=== PATIENT | male | born 1930 | race Caucasian/White ===

== ENCOUNTER 2019-02-24 23:44 | Observation (INO) ==
[2019-02-25 00:12] LABS: Basophils # (auto) 0.01 K/uL (0-0.2); Basophils % (auto) 0.1 %; Eosinophils # (auto) 0.31 K/uL (0-0.5); Hematocrit (blood only) 35.1 % (42-52); Hemoglobin 12.3 g/dL (14.0-18.0); Immature Granulocytes # (auto) 0.01 K/uL (0.00-0.02); Immature Granulocytes % (auto) 0.1 %; Lymphocytes # (auto) 2.89 K/uL (1.2-3.4); Lymphocytes % (auto) 37.2 %; Mean Corpuscular Volume 97.2 fL (80-100); Monocytes # (auto) 0.76 K/uL (0.11-0.59); Monocytes % (auto) 9.8 %; Neutrophils # (auto) 3.79 K/uL (1.4-6.5); Neutrophils % (auto) 48.8 %; Platelet Count 193 K/uL (130-400); RDW Coefficient of Variation 13.7 % (11.5-14.5); RDW Standard Deviation 48.8 fL (36.4-46.3); Red Blood Count 3.61 M/uL (4.7-6.1); White Blood Count 7.77 K/uL (4.8-10.8)
[2019-02-25 00:23] LABS: Prothrombin Time 10.1 Seconds (9.0-12.0)
[2019-02-25 00:28] LABS: Alanine Aminotransferase 15 U/L (12-78); Albumin Level 3.3 gm/dl (3.4-5.0); Aspartate Aminotransferase 11 U/L (15-37); BUN Creatinine Ratio 27.1 (10-20); Blood Urea Nitrogen 52 mg/dl (7-18); Calcium 8.3 mg/dl (8.5-10.1); Carbon Dioxide 23 mmol/L (21-32); Chloride 112 mmol/L (98-107); Est GFR (African American) 35.5; Est GFR (Non-African American) 30.6; Glucose 109 mg/dl (70-99); Magnesium 2.5 mg/dl (1.8-2.4); Potassium 4.5 mmol/L (3.5-5.1); Sodium 141 mmol/L (136-145)
[2019-02-25 00:33] LABS: Alkaline Phosphatase 107 U/L (45-117); Bilirubin Direct < 0.1 mg/dl (0-0.2); Bilirubin,Total 0.2 mg/dl (0.2-1); Total Protein 6.9 gm/dl (6.4-8.2); Troponin I < 0.015 ng/ml (0-0.045)
[2019-02-25] MEDS ORDERED: ASPIRIN 81 MG CHEW PO STA (01:05)
--- NOTE | 2019-02-25 04:14 | Emergency Department Note ---
Entered by Allie Henriquez acting as a scribe for ED Provider Note Name: Stewart Oro Age: 88 Arrives Via: EMS Informant: Patient CC: Dizziness HPI: The patient is an 88 year old male who presents to the Emergency Room with complaints of an episode of dizziness starting 10 hours ago. The patient states that last night when he went to bed he felt off. He states that this morning he felt fine. He reports that 10 hours ago he noticed that he was feeling dizzy like he was lightheaded. He states he sat in his chair for a while and just watched TV, but when he got up to walk, he was unsteady on his feet. He notes that this concerned him so he called 911. The patient notes that he has had a cold for a few days and was taking medicine for it, but it has been resolved for several days now. The patient denies the room spinning, feeling weak, vision changes, slurred speech, diarrhea, vomiting, loss of consciousness, loss of appetite, a history of a stroke, and a cardiac history. ROS: See above HPI for pertinent positives & negatives. A total of 10 systems reviewed and were otherwise negative. Past Medical History: Diabetes, History of malignant basal cell neoplasm of skin, Acute respiratory failure, Sepsis, HTN, hypercholesteremia Past Surgical History: None Family History: Non-contributory Social History: The patient is , lives with his spouse, and is retired. He was never a smoker. Home Medications: Ascorbic Acid, Aspirin, Azithromycin, Calcium, Cephalexin, Vitamin D3, Garlic Oil, Glipizide, Metoprolol Succinate, Centrum Silver Adult 50+, Bactrim DS, Dyazide Allergies No known allergies Physical: Vitals: Temperature: 36.8, Temperature Source: Oral, Pulse Rate: 127, Respiratory Rate: 16, Blood Pressure: 121/70, Blood Pressure Mean: 87, O2 Saturation: 97% on Room Air Exam: GENERAL: Patient is tired appearing and in minimal distress. EYES: No scleral icterus, unremarkable pupils. ENT: Mucous membranes moist, no nasal congestion. NECK: No masses appreciated, no meningismus, trachea is midline. RESPIRATORY: No dyspnea. Clear to auscultation and equal bilaterally. No wheeze, no rhonchi. CARDIOVASCULAR: Bradycardic rate and regular rhythm. No murmurs, rubs, gallops appreciated. GASTROINTESTINAL: Abdomen soft, non-tender, no peritonitis. Bowel sounds positive. No masses appreciated. BACK: No midline tenderness, no CVA tenderness EXTREMITIES: Normal motion all extremities, no cyanosis, no edema. NEUROLOGIC: Alert and oriented, no acute sensory deficits, cranial nerves grossly intact. Periodic slurred speech (appears to be due to loose fitting dentures). Weakness and unsteadiness with sitting up. SKIN: No rash, no jaundice, no diaphoresis. ED Course: Prior Medical Record, Triage/Nursing Notes, Medications, Allergies reviewed by Me Vital Signs: reviewed and remarkable for wnl Labs: Reviewed and remarkable for bradycardia Interventions: ASA 324mg PO Imaging: X ray results are stated below per my interpretation: Chest: 1 view: No infiltrate, no effusion, normal cardiac border. [facility] Radiologist interpretation reviewed by me: CT Head without acute findings EKG: Per my interpretation: Stroke like symptoms: Sinus anne. Consults: 0246: I reviewed the patient's case with Dr. Morelos Hospitalist. He will evaluate the patient for further management. Reassessments/Times: 2348: The patient was evaluated in room B2, and a complete history and physical examination were performed. 0107: I reevaluated the patient and he still feels lightheaded and dizzy. He at times appears to have a left facial droop. I discussed his test results and the treatment plan with him and his family. They are agreeable to hospitalist evaluation. The hospitalist will be paged at this time. 0246: I reviewed the patient's case with Dr. Tamy Guzman. He will evaluate the patient for further management. Blood pressure: Elevated - Merrick to be Situation. Disposition: Hospitalization Differentials: Differential Diagnosis includes but is not limited to dehydration, stroke, anemia, hypoglycemia, hyponatremia, hypernatremia, urinary tract infection, pneumonia, bronchitis, sepsis, gastroenteritis, additional abdominal pathology, metabolic abnormalities and infections. Medical Decision Makin yr old male with ataxia dizziness and questionable left facial droop. Ongoing for 12 hours at this point. Minimal symptoms by exam thus not TPA nor intervention candidate. CT head negative. Labs unremarkable. No evidence infection. No evidence ACS. Hospitalist consulted given stroke like symptoms. ASA given for CVA treatment. Patient and family agree with plan for hospitalization. Impression: Stoke-Like Symptoms Ataxia Dizziness Adriano Chery MD The scribe's documentation has been prepared under my direction and personally reviewed by me in its entirety. I confirm that the note above accurately reflects all work, treatment, procedures, and medical decision making performed by me. Impression & Plan Stroke-like symptoms, Ataxia, Dizziness Past Med/Surg History Medical History Diabetes (Chronic) Dysplastic nevus of skin (Resolved Unknown) History of malignant basal cell neoplasm of skin (Resolved Unknown) Pneumonia (Acute) HTN (hypertension) Hypercholesteremia Family History Other Family history non-contributory Social History Preferred Language: Belarusian marital status: Current Living Situation: Spouse current occupational status: retired Feels Safe at Home: Yes Smoking Status: Never smoker Results & Data Vital Signs Vital Signs - 24 hr 02/24/19 23:49 02/24/19 23:50 02/24/19 23:51 Temperature 36.5 C Temperature Source Oral Sepsis Recent Fever Within 48 Hours No Sepsis New/Unexplained Change in Mental Status No Sepsis Action Taken by Nursing No Action Required Pulse Rate 53 L 52 L 53 L Pulse Rate [Right Finger] Pulse Rate from SpO2 Sensor 52 L 53 L Pulse Rhythm Regular Pulse Strength Normal Respiratory Rate 23 23 23 Respiratory Effort / Characteristics Non-Labored Respiratory Depth Normal Respiratory Pattern Regular Blood Pressure 146/67 H 146/67 H Blood Pressure [Left Arm] Blood Pressure Mean 93 93 Blood Pressure Mean [Left Arm] Blood Pressure Position Lying Blood Pressure Position [Left Arm] Pulse Oximetry 98 98 98 Oxygen Delivery Method Room Air 02/25/19 00:00 02/25/19 00:01 02/25/19 00:30 Temperature Temperature Source Sepsis Recent Fever Within 48 Hours Sepsis New/Unexplained Change in Mental Status Sepsis Action Taken by Nursing Pulse Rate 57 L 56 L 56 L Pulse Rate [Right Finger] Pulse Rate from SpO2 Sensor 56 L 56 L 56 L Pulse Rhythm Pulse Strength Respiratory Rate 18 16 19 Respiratory Effort / Characteristics Respiratory Depth Respiratory Pattern Blood Pressure 141/60 H Blood Pressure [Left Arm] Blood Pressure Mean 87 Blood Pressure Mean [Left Arm] Blood Pressure Position Blood Pressure Position [Left Arm] Pulse Oximetry 97 98 97 Oxygen Delivery Method 02/25/19 00:31 02/25/19 00:32 02/25/19 01:00 Temperature Temperature Source Sepsis Recent Fever Within 48 Hours Sepsis New/Unexplained Change in Mental Status Sepsis Action Taken by Nursing Pulse Rate 54 L 51 L Pulse Rate [Right Finger] 54 L Pulse Rate from SpO2 Sensor 54 L 52 L Pulse Rhythm Pulse Strength Respiratory Rate 22 18 15 Respiratory Effort / Characteristics Respiratory Depth Respiratory Pattern Blood Pressure 145/59 H Blood Pressure [Left Arm] 145/59 H Blood Pressure Mean 87 Blood Pressure Mean [Left Arm] 87 Blood Pressure Position Blood Pressure Position [Left Arm] Sitting Pulse Oximetry 97 97 96 Oxygen Delivery Method Room Air 02/25/19 01:01 02/25/19 01:30 02/25/19 02:00 Temperature Temperature Source Sepsis Recent Fever Within 48 Hours Sepsis New/Unexplained Change in Mental Status Sepsis Action Taken by Nursing Pulse Rate 51 L 55 L 51 L Pulse Rate [Right Finger] Pulse Rate from SpO2 Sensor 51 L 55 L 51 L Pulse Rhythm Pulse Strength Respiratory Rate 15 13 15 Respiratory Effort / Characteristics Respiratory Depth Respiratory Pattern Blood Pressure 114/52 L 137/65 Blood Pressure [Left Arm] Blood Pressure Mean 72 89 Blood Pressure Mean [Left Arm] Blood Pressure Position Blood Pressure Position [Left Arm] Pulse Oximetry 96 97 95 Oxygen Delivery Method 02/25/19 02:01 02/25/19 02:30 02/25/19 02:31 Temperature Temperature Source Sepsis Recent Fever Within 48 Hours Sepsis New/Unexplained Change in Mental Status Sepsis Action Taken by Nursing Pulse Rate 50 L 61 59 L Pulse Rate [Right Finger] Pulse Rate from SpO2 Sensor 51 L 61 59 L Pulse Rhythm Pulse Strength Respiratory Rate 16 17 18 Respiratory Effort / Characteristics Respiratory Depth Respiratory Pattern Blood Pressure 110/59 L 133/55 L Blood Pressure [Left Arm] Blood Pressure Mean 76 81 Blood Pressure Mean [Left Arm] Blood Pressure Position Blood Pressure Position [Left Arm] Pulse Oximetry 96 98 96 Oxygen Delivery Method 02/25/19 03:01 02/25/19 03:02 02/25/19 03:30 Temperature Temperature Source Sepsis Recent Fever Within 48 Hours Sepsis New/Unexplained Change in Mental Status Sepsis Action Taken by Nursing Pulse Rate 51 L 56 L 49 L Pulse Rate [Right Finger] Pulse Rate from SpO2 Sensor 51 L 51 L 50 L Pulse Rhythm Pulse Strength Respiratory Rate 15 19 16 Respiratory Effort / Characteristics Respiratory Depth Respiratory Pattern Blood Pressure 115/53 L Blood Pressure [Left Arm] Blood Pressure Mean 73 Blood Pressure Mean [Left Arm] Blood Pressure Position Blood Pressure Position [Left Arm] Pulse Oximetry 96 97 96 Oxygen Delivery Method 02/25/19 03:31 02/25/19 04:00 02/25/19 04:01 Temperature Temperature Source Sepsis Recent Fever Within 48 Hours Sepsis New/Unexplained Change in Mental Status Sepsis Action Taken by Nursing Pulse Rate 49 L 48 L 49 L Pulse Rate [Right Finger] Pulse Rate from SpO2 Sensor 49 L 48 L 49 L Pulse Rhythm Pulse Strength Respiratory Rate 16 13 13 Respiratory Effort / Characteristics Respiratory Depth Respiratory Pattern Blood Pressure 106/51 L 117/53 L Blood Pressure [Left Arm] Blood Pressure Mean 69 74 Blood Pressure Mean [Left Arm] Blood Pressure Position Blood Pressure Position [Left Arm] Pulse Oximetry 96 96 96 Oxygen Delivery Method Home Medications Current Medication List: was personally reviewed by me Laboratory Data Attestation: I reviewed the patient's lab results. Result diagrams: 02/25/19 00:02 02/25/19 00:02 Lab Results 02/25/19 02/25/19 02/25/19 Range/Units 00:02 00:02 00:02 WBC 7.77 (4.8-10.8) K/uL RBC 3.61 L (4.7-6.1) M/uL Hgb 12.3 L (14.0-18.0) g/dL Hct 35.1 L (42-52) % MCV 97.2 (80-100) fL MCH 34.1 H (25-34) pg MCHC 35.0 (32-36) g/dL RDW Std Deviation 48.8 H (36.4-46.3) fL RDW Coeff of Bailey 13.7 (11.5-14.5) % Plt Count 193 (130-400) K/uL MPV 9.0 (7.4-10.4) fL Immature Gran % (Auto) 0.1 % Neut % (Auto) 48.8 % Lymph % (Auto) 37.2 % [place] % (Auto) 9.8 % Eos % (Auto) 4.0 % Baso % (Auto) 0.1 % Immature Gran # (Auto) 0.01 (0.00-0.02) K/uL Neut # (Auto) 3.79 (1.4-6.5) K/uL Lymph # (Auto) 2.89 (1.2-3.4) K/uL [place] # (Auto) 0.76 H (0.11-0.59) K/uL Eos # (Auto) 0.31 (0-0.5) K/uL Baso # (Auto) 0.01 (0-0.2) K/uL PT 10.1 (9.0-12.0) Seconds INR 1.0 (0.9-1.1) Sodium 141 (136-145) mmol/L Potassium 4.5 (3.5-5.1) mmol/L Chloride 112 H (98-107) mmol/L Carbon Dioxide 23 (21-32) mmol/L Anion Gap 6.0 (3-11) BUN 52 H (7-18) mg/dl Creatinine 1.92 H (0.6-1.4) mg/dl Est Cr Clr Drug Dosing Not Reportable Est GFR ( Amer) 35.5 Est GFR (Non-Af Amer) 30.6 BUN/Creatinine Ratio 27.1 H (10-20) Glucose 109 H (70-99) mg/dl Calcium 8.3 L (8.5-10.1) mg/dl Magnesium 2.5 H (1.8-2.4) mg/dl Total Bilirubin 0.2 (0.2-1) mg/dl Direct Bilirubin < 0.1 (0-0.2) mg/dl AST 11 L (15-37) U/L ALT 15 (12-78) U/L Alkaline Phosphatase 107 (45-117) U/L Troponin I < 0.015 (0-0.045) ng/ml Total Protein 6.9 (6.4-8.2) gm/dl Albumin 3.3 L (3.4-5.0) gm/dl Administered Medications Discontinued Medications Aspirin (Aspirin Chew) 324 mg PO NOW STA Stop: 02/25/19 01:06 Last Admin: 02/25/19 01:13 Dose: 324 mg Documented by: [id number] Blood Pressure Blood Pressure Findings: Elevated blood pressure Blood Pressure Disposition: elevated BP felt to be situational Discharge Plan Visit Data Chief Complaint: Dizziness ED Provider: Adriano Chery Discharge Problem: Stroke-like symptoms, Ataxia, Dizziness Patient Disposition: Being Evaluated by Hospitalist Discharge Instructions Interventions: ED Discharge Assessment Last Done: 02/25/19 04:06 The scribe's documentation has been prepared under my direction and personally reviewed by me in its entirety. I confirm that the note above accurately reflec ts all work, treatment, procedures, and medical decision making performed by me.
--- NOTE | 2019-02-25 04:38 | History and Physical Report ---
DATE OF ADMISSION: 02/25/2019 CHIEF COMPLAINT: Dizziness and imbalance. HISTORY OF PRESENT ILLNESS: This is an 88-year-old male with past medical history significant for type 2 diabetes, hyperlipidemia, obstructive sleep apnea on CPAP, hypertension, chronic kidney disease stage III, BPH, history of rhabdomyolysis, who presents with dizziness and imbalance. The patient lives with his . He ambulates without any help. Today in the afternoon he was sitting on the porch, suddenly felt dizzy, lightheaded. It lasted for some time and after that he was able to get up and go into the house and later he was watching TV with his and when he tried to get up, he was feeling imbalance and his got worried and EMS was called in. When the EMS came, he walked okay to the ambulance and brought into the hospital. Currently resting comfortably and hemodynamically stable. Initial imaging studies are okay. Denies any headache, very hard of hearing. He denies any earaches, no runny nose, no sore throat, no cough. Sleeps okay. Appetite is okay. No recent weight gain or weight loss. No fever, chills. No chest pain, no shortness of breath, no cough, no nausea, no abdominal pain. Normal bowel and bladder movements. No hematuria or burning micturition. No melena or hematochezia. No swelling in the legs. No rash. ALLERGIES: No known drug allergies. PAST MEDICAL HISTORY: As mentioned above. PAST SURGICAL HISTORY: Colonoscopy, appendectomy, left hip replacement, right cataract surgery, vasectomy. MEDICATIONS: The patient is on glipizide 5 mg p.o. daily, lisinopril 5 mg p.o. daily, Maxzide 37.5/25 mg daily, Toprol-XL 50 mg p.o. daily, Ativan 0.5 mg p.o. b.i.d. p.r.n., hydroxyzine 10 mg 1-2 tablets p.o. at bedtime for itching, Zofran 4 mg p.o. q. 8 hours p.r.n., vitamin D 1000 units p.o. daily, garlic 1000 mg p.o. daily, aspirin 81 mg p.o. daily, calcium 600 mg p.o. daily, Centrum Silver 1 tablet daily, vitamin C 500 mg p.o. daily. FAMILY HISTORY: Significant for father had hypertension and stroke, mother had hypertension, brother has hypertension, son has diabetes. SOCIAL HISTORY: Currently lives with . No smoking, no alcohol, no drug use. REVIEW OF SYSTEMS: As per HPI. Rest of the review of systems negative. PHYSICAL EXAMINATION: GENERAL: The patient is somewhat old and frail, not in acute distress. VITAL SIGNS: Temperature 36.5, pulse 51, respiratory rate 15, blood pressure 115/53, oxygen 96% on room air. HEENT: No pallor, no icterus. Pupils equal, round, and reactive to light. NECK: No JVD. No neck masses, no carotid bruits. CARDIOVASCULAR: S1, S2 heard, regular rate and rhythm, no murmur, no gallop. RESPIRATORY SYSTEM: Normal AP diameter. No accessory muscle use. No wheezing, no crackles. ABDOMEN: Soft, bowel sounds present. Nontender. No distention. CENTRAL NERVOUS SYSTEM: Cranial nerves II-XII grossly intact. Power 5/5 in all extremities. No pronator drift. [id number]-az-[id number] test normal. Coordination of movements normal. Heel to fortune test normal. Sensation is intact. Position sense intact. EXTREMITIES: No edema, no erythema. LABORATORY DATA: WBC 7.7, hemoglobin 12.3, hematocrit 35.1, platelets 193. PT 10.1, INR 1. Sodium 141, potassium 4.5, chloride 112, bicarbonate 23, BUN 52, creatinine 1.9, serum glucose 109, calcium 8.3, magnesium 2.5, total bilirubin 0.2, direct bilirubin less than 0.1, AST 11, ALT 15, alkaline phosphatase 107. Troponin I less than 0.015. IMAGING DATA: Chest x-ray, no acute findings seen. EKG: Sinus bradycardia at rate of 51. No acute ST changes seen. No significant change from previous EKG. ASSESSMENT AND PLAN: This is an 88-year-old male who presents with dizziness and imbalance. 1. Dizziness and imbalance. CT head unofficial report unremarkable. Currently, the patient is doing okay. Hemodynamically stable. We will observe in tele floor. We will get a stroke workup with MRI of the head, carotid Doppler, echocardiogram, PT and OT, neurology evaluation. Patient is already on aspirin and if MRI shows stroke, we will add Plavix and high-dose statin. Follow fasting lipid profile and HbA1c level as per stroke protocol. 2. History of diabetes. Hold the glipizide. Placed him on insulin sliding scale currently and we will place him on soft diet until speech evaluation. Follow his blood sugars. Follow his hemoglobin A1c levels. 3. Hypertension. On lisinopril, Maxzide, and Toprol-XL, which he will continue. May be blood pressure medication needs to be adjusted as his blood pressure is somewhat on the lower side for his age, could be causing these symptoms. 4. Sinus bradycardia. May be his meds need to be adjusted. We will monitor on tele floor. 5. Chronic kidney disease stage III, baseline creatinine around 1.7-1.8, point of care creatinine of 1.9. Gentle fluids. We will follow the labs in the a.m. If worsening, we will hold the lisinopril and Maxzide. 6. Anxiety. Ativan p.r.n. 7. Obstructive sleep apnea, on CPAP at bedtime. 8. Hyperlipidemia . Not on medications, will follow the fasting lipid profile. 9. Deep vein thrombosis prophylaxis, sequential compression devices for now. DISPOSITION: Observation in tele floor. PT and OT prior to discharge. Social service to help with discharge planning. Level 1 full code. MTDD
[2019-02-25] MEDS ORDERED: ACETAMINOPHEN 325 MG TAB PO PRN (04:51)
[2019-02-25] MEDS ORDERED: NITROGLYCERIN SL 0.4 MG/TAB TAB SL PRN (04:51)
[2019-02-25] MEDS ORDERED: SODIUM CHLORIDE 0.9% 1000ML 1,000 ML IV SCH (04:51)
[2019-02-25] MEDS ORDERED: ONDANSETRON 4 MG TAB PO PRN (04:51)
[2019-02-25] MEDS ORDERED: ONDANSETRON INJ 2 MG/ML 2 ML VIAL IV PRN (04:51)
[2019-02-25] MEDS ORDERED: LORazepam 0.5 MG TAB PO PRN (04:51)
[2019-02-25] MEDS ORDERED: PHARMACIST DISCHARGE MED REC CONSULT PRN (04:51)
[2019-02-25] MEDS ORDERED: GLUCOSE 10 TABS/TUBE PO PRN (05:15)
[2019-02-25] MEDS ORDERED: CARBOHYDRATES FOR HYPOGLYCEMIA PO PRN (05:15)
[2019-02-25] MEDS ORDERED: DEXTROSE 50% 50 ML SYRINGE IV PRN (05:15)
[2019-02-25] MEDS ORDERED: GLUCAGON FOR INJ 1 MG VIAL SQ PRN (05:15)
[2019-02-25] MEDS ORDERED: GLUCOSE 40% GEL 15 GM TUBE PO PRN (05:15)
--- NOTE | 2019-02-25 06:36 | XRay Report ---
XR chest 1V portable HISTORY: 88 years-old Male generalized weakness acute weakness COMPARISON: Chest radiograph 05/03/2018 TECHNIQUE: Portable AP view of the chest FINDINGS: Calcified granuloma of the left lung base is unchanged. Cardiomediastinal and hilar silhouettes are s table. There is no pneumothorax, pleural effusion, focal airspace consolidation or overt pulmonary ed marva. Healed remote left-sided rib fractures. Degenerative changes of the shoulders and spine. IMPRESSION: No acute process. The above report was generated using voice recognition software. It may contain grammatical, syntax o r spelling errors. Electronically signed by: Israel Hartmann M.D. 02/25/2019 6:35 AM
--- NOTE | 2019-02-25 06:44 | CT Scan Report ---
CT head/brain wo con CT DOSE: 614.27 mGy.cm HISTORY: Mental status change ataxia, weakness TECHNIQUE: Multiaxial CT images of the head were performed without the use of intravenous contrast. A dose lowering technique was utilized adhering to the principles of ALARA. Comparison: None. Findings: The paranasal sinuses and mastoid air cells are clear. The calvarium and skull base are int act. The ventricles and sulci are within normal limits. There is no mass, hematoma, midline shift, or acute infarct. Impression: No acute intracranial abnormality. The above report was generated using voice recognition software. It may contain grammatical, syntax or spelling errors. Electronically signed by: Johnnie Awan M.D. 02/25/2019 6:43 AM
[2019-02-25] MEDS ORDERED: GADOBUTROL 65ML VIAL IV PRN (07:03)
--- NOTE | 2019-02-25 07:27 | Magnetic Resonance Report ---
MR brain wo/w con HISTORY: 88 years-old Male stroke like symptoms acute strokelike symptoms with lightheadedness COMPARISON: CT head 02/25/2019. TECHNIQUE: Multiplanar multisequence MRI the brain was obtained both with and without the use of 8 mL Gadavist FINDINGS: Ob Gyn Physician Assistant localizer images demonstrate no gross abnormality. There is no restricted diffusion to suggest acute or subacute infarction. Midline structures including the corpus callosum, brainstem, optic miguel ángel sm, pituitary and pineal glands appear unremarkable on the sagittal T1 series. No cerebellar tonsilla r herniation. Degenerative changes noted about the imaged cervical spine. No acute intracranial hemorrhage, midline shift, abnormal extra-axial collections, hydrocephalus or i ntracranial mass. Age-related involutional changes with ex vacuo ventriculomegaly. Moderate T2/FLAIR hyperintensities about the white matter suggest probable chronic microvascular ischemic changes. Ther e is no abnormal intra-axial or extra-axial enhancement identified. The major flow voids at the level of the skull base appear to be patent. Mastoid air cells appear marley ar. Mild mucosal thickening of the paranasal sinuses. Mild rightward bowing and spurring of the nasal septum. Prior bilateral cataract repair. The skull and soft tissues are unremarkable. IMPRESSION: 1. No acute intracranial abnormality identified, specifically no acute or subacute infarction. 2. Age-related involutional changes with suggestion of moderate chronic microvascular ischemic diseas e. 3. Mild paranasal sinus disease. 4. No abnormal enhancement. The above report was generated using voice recognition software. It may contain grammatical, syntax o r spelling errors. Electronically signed by: Israel Hartmann M.D. 02/25/2019 7:25 AM
[2019-02-25] MEDS: INSULIN ASPART 100 UNITS/ML 3 ML PEN SC SCH ×2 (08:08→13:22)
[2019-02-25] MEDS ORDERED: TOCOPHERYL, DL-ALPHA 400 UNITS CAP PO SCH (09:00)
[2019-02-25] MEDS ORDERED: CALCIUM 600MG + VIT D 400 IU TAB PO SCH (09:00)
[2019-02-25] MEDS ORDERED: ASPIRIN 81 MG ECTAB PO SCH (09:00)
[2019-02-25] MEDS ORDERED: CHOLECALCIFEROL 1,000 UNITS TAB PO SCH (09:00)
[2019-02-25] MEDS ORDERED: METOPROLOL SUCC 50MG EXT REL TAB PO SCH (09:00)
[2019-02-25] MEDS ORDERED: TRIAMTERENE/HCTZ 37.5/25MG CAP PO SCH (09:00)
[2019-02-25] MEDS ORDERED: ASCORBIC ACID 500 MG TAB PO SCH (09:00)
[2019-02-25] MEDS ORDERED: LISINOPRIL 5 MG TAB PO SCH (09:00)
[2019-02-25] MEDS ORDERED: CEROVITE ADV FORMULA TAB PO SCH (09:00)
[2019-02-25 09:21] LABS: BUN Creatinine Ratio 29.1 (10-20); Calcium 8.6 mg/dl (8.5-10.1); Creatinine Clr Calc Pharmacy 29.6 ml/min; Est GFR (African American) 39.4; Potassium 4.7 mmol/L (3.5-5.1)
[2019-02-25 09:22] LABS: Estimated Average Glucose 134 mg/dl; Hemoglobin A1C 6.3 % (4.5-5.6)
[2019-02-25 09:23] LABS: Chol HDL Ratio 4; Cholesterol 123 mg/dl (0-200); HDL Cholesterol 30 mg/dl; LDL Cholesterol Calculated 49 mg/dl; Triglycerides 218 mg/dl (0-150); VLDL Cholesterol 44 mg/dl
--- NOTE | 2019-02-25 10:56 | Ultrasound Report ---
ULTRASOUND OF THE CAROTID ARTERIES CLINICAL HISTORY: Possible stroke COMPARISON STUDY: October 2011 TECHNIQUE: Real-time, grayscale, and color Doppler sonography of the carotid arteries was performed. Imaging reviewed in the transverse and longitudinal planes. NASCET criteria was utilized for stenosis calcification. FINDINGS: There is moderate atherosclerotic plaque present bilateral. The peak systolic velocity within the right internal carotid artery is 100 cm/sec. The systolic velocity ratio of right internal to common carotid artery is 1.5. The peak systolic velocity within the left internal carotid artery is 267 cm/sec. The systolic velocity ratio left internal to common carotid artery is 4.7. Antegrade flow is seen in the vertebral arteries. The external carotid arteries are patent. IMPRESSION: 1. 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 2. No evidence of hemodynamically significant left internal carotid artery stenosis. Electronically signed by: Mehdi Cardenas M.D. 02/25/2019 10:55 AM
--- NOTE | 2019-02-25 14:55 | Neurology Consultation ---
Date of Consultation February 25, 2019 Assessment & Plan (1) Dizziness: 1. MRI - no acute findings 2. carotid doppler- 70+ stenosis LICA 3. TTE- 55-60% no ASD 4. PT/OT for discharge needs 5. primary team for medication adjustments pulse and blood pressure issues like 6. call with questions concerns will sign off for now Supervising Physician Co-Signing Physician Notes I have seen and discussed above patient with Dr Ramon Rai. I agree with Amanda Berrios PA-C as noted below. Patient was seen and examined. Symptoms improved. He denies dizziness or balance problems today. No history of similar episodes. Denies vertigo. On examine he is grossly hard of hearing. EOMI. Face symmetric. Speech is clear. Wide based gait. Amble to stand with eyes closed. MRI Brain reviewed. No evidence of acute stroke. 70% left ICA stenosis noted on carotid doppler. I believe this is an incidental finding and not related to the episode he had yesterday. Continue home ASA 81 mg daily. Would recommend he start a high intensity statin. Recommend vascular surgery follow up as outpatient. Recommend PT/OT. Please call with any further question or concerns. History of Present Illness Reason for Consultation: dizziness,imbalance Requesting Physician: Gold Bell MD Attending Physician: Gold Bell MD History of Present Illness Stewart is an 88 year old male who has a PMH DM2, HLD, LEN on CPAP, HTN, CKD III, BPH, previous hx rhabdomyolysis, who presents with dizziness and imbalance. He lives with his and ambulates without assistance. He was sitting on the porch, suddenly felt dizzy, lightheaded. He was then watching TV with his and when he tried to get up, he was feeling imbalance and his got worried and EMS was called in. he was brought to the ED for further evaluation. He denies CP, SOB, abdominal pain, one sided weakness, numbness tingling, N, V, headache, falls. Allergies Allergy/AdvReac Type Severity Reaction Status Date / Time No Known Allergies Allergy Verified 02/25/19 01:07 Home Medications Home Medications Medication Instructions Recorded Confirmed Type ascorbic acid (vitamin C) [Vitamin 500 mg PO DAILY 02/25/19 02/25/19 History C] aspirin 81 mg PO DAILY 02/25/19 02/25/19 History calcium carbonate [Calcium 600] 600 mg PO Q OTHER DAY 02/25/19 02/25/19 History cholecalciferol (vitamin D3) 1,000 unit PO DAILY 02/25/19 02/25/19 History [Vitamin D3] garlic 1,000 mg PO DAILY 02/25/19 02/25/19 History glipizide 30 mg PO QAM 02/25/19 02/25/19 History hydroxyzine HCl 10 - 20 mg PO HS 02/25/19 02/25/19 History lisinopril 5 mg PO DAILY 02/25/19 02/25/19 History lorazepam 0.5 mg PO BID PRN 02/25/19 02/25/19 History metoprolol succinate 50 mg PO DAILY 02/25/19 02/25/19 History rfogslge-nrq-QW-lycopen-lutein 1 tab PO Q OTHER DAY 02/25/19 02/25/19 History [Centrum Silver Men] ondansetron HCl 4 mg PO Q8 PRN 02/25/19 02/25/19 History triamterene-hydrochlorothiazid 1 cap PO DAILY 02/25/19 02/25/19 History vitamin E 400 unit PO DAILY 02/25/19 02/25/19 History Patient History Medical History Diabetes (Chronic) Dysplastic nevus of skin (Resolved Unknown) History of malignant basal cell neoplasm of skin (Resolved Unknown) Pneumonia (Acute) HTN (hypertension) Hypercholesteremia Family History Other Family history non-contributory Social History Preferred Language: [place] Communication Ability: Effective Tube Coremaker Required: No Beliefs That Will Affect Care: None marital status: Current Living Situation: Spouse current occupational status: retired Feels Safe at Home: Yes Safety Concerns: Feels Safe At This Time Smoking Status: Never smoker Hx Alcohol Use: No Hx Substance Use: No Physical Exam Vital Signs (Past 24 Hours): Last Vital Signs Temp 36.5 C 02/25/19 11:20 Pulse 52 L 02/25/19 11:20 Resp 16 02/25/19 11:20 BP 134/59 L 02/25/19 11:20 Pulse Ox 99 02/25/19 11:20 Physical Exam: Constitutional: appearance nourished, healthy and normal, very [place] Ears, Nose, Mouth and Throat: mucous membranes moist, no injection and skin normal, eyes normal Cardiovascular: normal S-1 and S-2 and regular rate and rhythm Respiratory: course breath sounds Musculoskeletal: no peripheral edema and good distal pulses Skin: no stigmata of neurocutaneous disease noted and normal and intact Eyes: extraocular muscles intact (EOMI) and pupils equal, round and reactive to light (PERRL) NEUROLOGIC EXAMINATION: Mental status: Alert and interactive Oriented to full date and location Oriented to person Speech fluent with no evidence of aphasia Cranial Nerves smile eye brow raise symmetric Reflexes: Deep tendon reflexes were symmetrical and graded 2/5. Sensory: no sensory deficits to light touch Coordination: finger to nose no bi pass bilaterally, Romberg negative Gait/Stance: Posture normal. Gait normal: with steady with steps, base, turning (slightly off balance) and tandem gait. Motor: Negative for pronator drift of out stretched arms with eyes closed. Strength: biceps triceps hand loan officer assistant, deltoids bilaterally 5/5 hip flex plantar flex ext 5/5 bilaterally Results & Data Laboratory Results Abnormal lab results 02/25/19 02/25/19 02/25/19 Range/Units 00:02 00:02 07:16 RBC 3.61 L (4.7-6.1) M/uL Hgb 12.3 L (14.0-18.0) g/dL Hct 35.1 L (42-52) % MCH 34.1 H (25-34) pg RDW Std Deviation 48.8 H (36.4-46.3) fL [place] # (Auto) 0.76 H (0.11-0.59) K/uL Chloride 112 H (98-107) mmol/L BUN 52 H (7-18) mg/dl Creatinine 1.92 H (0.6-1.4) mg/dl BUN/Creatinine Ratio 27.1 H (10-20) Glucose 109 H (70-99) mg/dl POC Glucose 106 H (70-99) Hemoglobin A1c (4.5-5.6) % Calcium 8.3 L (8.5-10.1) mg/dl Magnesium 2.5 H (1.8-2.4) mg/dl AST 11 L (15-37) U/L Albumin 3.3 L (3.4-5.0) gm/dl Triglycerides (0-150) mg/dl 02/25/19 02/25/19 02/25/19 Range/Units 08:53 08:53 08:53 RBC (4.7-6.1) M/uL Hgb (14.0-18.0) g/dL Hct (42-52) % MCH (25-34) pg RDW Std Deviation (36.4-46.3) fL [place] # (Auto) (0.11-0.59) K/uL Chloride 111 H (98-107) mmol/L BUN 51 H (7-18) mg/dl Creatinine 1.76 H (0.6-1.4) mg/dl BUN/Creatinine Ratio 29.1 H (10-20) Glucose 163 H (70-99) mg/dl POC Glucose (70-99) Hemoglobin A1c 6.3 H (4.5-5.6) % Calcium (8.5-10.1) mg/dl Magnesium (1.8-2.4) mg/dl AST (15-37) U/L Albumin (3.4-5.0) gm/dl Triglycerides 218 H (0-150) mg/dl 02/25/19 Range/Units 11:39 RBC (4.7-6.1) M/uL Hgb (14.0-18.0) g/dL Hct (42-52) % MCH (25-34) pg RDW Std Deviation (36.4-46.3) fL [place] # (Auto) (0.11-0.59) K/uL Chloride (98-107) mmol/L BUN (7-18) mg/dl Creatinine (0.6-1.4) mg/dl BUN/Creatinine Ratio (10-20) Glucose (70-99) mg/dl POC Glucose 120 H (70-99) Hemoglobin A1c (4.5-5.6) % Calcium (8.5-10.1) mg/dl Magnesium (1.8-2.4) mg/dl AST (15-37) U/L Albumin (3.4-5.0) gm/dl Triglycerides (0-150) mg/dl Diagnostic Findings CXR-calcified granuloma of the left lung base is unchanged. Cardiomediastinal and hilar silhouettes are stable. There is no pneumothorax, pleural effusion, focal airspace consolidation or overt pulmonary edema. Healed remote left-sided rib fractures. Degenerative changes of the shoulders and spine. CT head-No acute intracranial abnormality. MRI brain- No acute intracranial abnormality identified, specifically no acute or subacute infarction. Age-related involutional changes with suggestion of moderate chronic microvascular ischemic disease. Mild paranasal sinus disease. No abnormal enhancement. carotid doppler- 70+ percent stenosis of the left internal carotid artery. No evidence of hemodynamically significant left internal carotid artery stenosis.
[2019-02-25] MEDS ORDERED: STROKE PATIENT DISCHARGE STA (16:15)
--- NOTE | 2019-02-25 16:17 | Hospitalist Progress Note ---
Date of Service February 25, 2019 Assessment & Plan (1) Dizziness: HISTORY OF PRESENT ILLNESS: as per admitting doctor "This is an 88-year-old male with past medical history significant for type 2 diabetes, hyperlipidemia, obstructive sleep apnea on CPAP, hypertension, chronic kidney disease stage III, BPH, history of rhabdomyolysis, who presents with dizziness and imbalance. The patient lives with his . He ambulates without any help. Today in the afternoon he was sitting on the porch, suddenly felt dizzy, lightheaded. It lasted for some time and after that he was able to get up and go into the house and later he was watching TV with his and when he tried to get up, he was feeling imbalance and his got worried and EMS was called in. When the EMS came, he walked okay to the ambulance and brought into the hospital. Currently resting comfortably and hemodynamically stable. Initial imaging studies are okay. Denies any headache, very hard of hearing. He denies any earaches, no runny nose, no sore throat, no cough. Sleeps okay. Appetite is okay. No recent weight gain or weight loss. No fever, chills. No chest pain, no shortness of breath, no cough, no nausea, no abdominal pain. Normal bowel and bladder movements. No hematuria or burning micturition. No melena or hematochezia. No swelling in the legs. No rash." Dizziness and imbalance. -resolved -appears transient in nature -received IV fluids during hospital stay -advised patient to reduce home dose Metoprolol from 50 mg daily to 25 mg daily to improve the bradycardia -echocardiogram TTE- 55-60% no ASD -CT head No acute intracranial abnormality -MRI brain: No acute intracranial abnormality identified, specifically no acute or subacute infarction; Age-related involutional changes with suggestion of moderate chronic microvascular ischemic disease. -passed PT/OT evaluations -neurology: no evidence of stroke, incidental left carotid stenosis sinus bradycardia -heart rate generally in the low 50s -Patient should take new prescription of metoprolol succinate as 25 mg daily rather than 50 mg daily to avoid slow heart rate (bradycardia) left internal carotid stenosis -Patient had good non fasting lipid panel but because of the left internal carotid stenosis as seen on ultrasound carotid dopplers, neurology recommends patient to take high intensity statin and atorvastatin 40 mg have been prescribed. Patient should discuss with primary care doctor on further management of plaque control and be referred to a vascular surgery service clinic by primary medical doctor. 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 Metoprolol adjustment from home medication dosing is to be reduced History of Anxiety -no longer takes Ativan Obstructive sleep apnea, on CPAP at bedtime. Discharge Diagnosis: Dizziness and Imbalance (resolved), sinus bradycardia, left internal carotid stenosis, type 2 diabetes mellitus without mcc current use of insulin, acute kidney injury on Chronic kidney disease (acute kidney injury resolved) Discharge Instructions: "Discharge to home Patient has close follow up with primary care doctor 02/27/2019 11:00 AM Provider Johnnie Pantoja MD Department [facility] Patient should take new prescription of metoprolol succinate as 25 mg daily rather than 50 mg daily to avoid slow heart rate (bradycardia) Patient may continue glipizide 5 mg daily extended release and continue to follow with family medical doctor about diabetes type 2 mellitus management HbA1c 6.3 so the diabetes mellitus is controlled Patient had good non fasting lipid panel but because of the left internal carotid stenosis as seen on ultrasound carotid dopplers, neurology recommends patient to take high intensity statin and atorvastatin 40 mg have been prescribed. Patient should discuss with primary care doctor on further man agement of plaque control and be referred to a vascular surgery service clinic by primary medical doctor. Patient should drink water to stay hydrated" Subjective Patient seen and examined at bedside. no dizziness today. ambulated well. telemetry with heart rate in 50s. denies shortness of breath. hard of hearing and this is baseline as per patient's . performed medical reconcilliation at bedside as the patient's brought in all home medication pill bottles. Discharge plans discussed with patient and his at length Physical Exam Vital Signs (Past 24 Hours): Last Vital Signs Temp 36.5 C 02/25/19 15:00 Pulse 54 L 02/25/19 15:52 Resp 16 02/25/19 15:00 BP 152/66 H 02/25/19 15:00 Pulse Ox 99 02/25/19 15:00 Constitutional: WD/WN, vitals as above Eyes: PERRL, conjunctivae normal, anicteric sclerae EOM intact bilaterally ENMT: external ear and nose normal, oropharynx normal Ears: + hearing impairment Neck: trachea midline, no thyromegaly normal visual inspection Respiratory: normal respiratory effort, lungs clear to auscultation Cardiovascular: RRR, no murmur, no edema Gastrointestinal (Abdomen): normal bowel sounds, soft, nontender, no hepatosplenomegaly Musculoskeletal: no cyanosis or clubbing, extremities motor strength 5/5 Head/Neck/Chest: normocephalic and head atraumatic Neurologic: PERRL, EOMI, accommodation nl, no face palsy, no dysarthria CN's II-XI intact bilaterally Psychiatric: A+Ox3, euthymic affect
--- NOTE | 2019-02-25 16:34 | Discharge Summary ---
Date of Service February 25, 2019 Admission HPI Per Admitting Provider HISTORY OF PRESENT ILLNESS: This is an 88-year-old male with past medical history significant for type 2 diabetes, hyperlipidemia, obstructive sleep apnea on CPAP, hypertension, chronic kidney disease stage III, BPH, history of rhabdomyolysis, who presents with dizziness and imbalance. The patient lives with his . He ambulates without any help. Today in the afternoon he was sitting on the porch, suddenly felt dizzy, lightheaded. It lasted for some time and after that he was able to get up and go into the house and later he was watching TV with his and when he tried to get up, he was feeling imbalance and his got worried and EMS was called in. When the EMS came, he walked okay to the ambulance and brought into the hospital. Currently resting comfortably and hemodynamically stable. Initial imaging studies are okay. Denies any headache, very hard of hearing. He denies any earaches, no runny nose, no sore throat, no cough. Sleeps okay. Appetite is okay. No recent weight gain or weight loss. No fever, chills. No chest pain, no shortness of breath, no cough, no nausea, no abdominal pain. Normal bowel and bladder movements. No hematuria or burning micturition. No melena or hematochezia. No swelling in the legs. No rash. ALLERGIES: No known drug allergies. PAST MEDICAL HISTORY: As mentioned above. PAST SURGICAL HISTORY: Colonoscopy, appendectomy, left hip replacement, right cataract surgery, vasectomy. MEDICATIONS: The patient is on glipizide 5 mg p.o. daily, lisinopril 5 mg p.o. daily, Maxzide 37.5/25 mg daily, Toprol-XL 50 mg p.o. daily, Ativan 0.5 mg p.o. b.i.d. p.r.n., hydroxyzine 10 mg 1-2 tablets p.o. at bedtime for itching, Zofran 4 mg p.o. q. 8 hours p.r.n., vitamin D 1000 units p.o. daily, garlic 1000 mg p.o. daily, aspirin 81 mg p.o. daily, calcium 600 mg p.o. daily, Centrum Silver 1 tablet daily, vitamin C 500 mg p.o. daily. FAMILY HISTORY: Significant for father had hypertension and stroke, mother had hypertension, brother has hypertension, son has diabetes. SOCIAL HISTORY: Currently lives with . No smoking, no alcohol, no drug use. REVIEW OF SYSTEMS: As per HPI. Rest of the review of systems negative. Admission Exam Per Admitting Provider PHYSICAL EXAMINATION: GENERAL: The patient is somewhat old and frail, not in acute distress. VITAL SIGNS: Temperature 36.5, pulse 51, respiratory rate 15, blood pressure 115/53, oxygen 96% on room air. HEENT: No pallor, no icterus. Pupils equal, round, and reactive to light. NECK: No JVD. No neck masses, no carotid bruits. CARDIOVASCULAR: S1, S2 heard, regular rate and rhythm, no murmur, no gallop. RESPIRATORY SYSTEM: Normal AP diameter. No accessory muscle use. No wheezing, no crackles. ABDOMEN: Soft, bowel sounds present. Nontender. No distention. CENTRAL NERVOUS SYSTEM: Cranial nerves II-XII grossly intact. Power 5/5 in all extremities. No pronator drift. Ifqnrq-vs-vaxd test normal. Coordination of movements normal. Heel to fortune test normal. Sensation is intact. Position sense intact. EXTREMITIES: No edema, no erythema. Principal Diagnosis Dizziness and Imbalance (resolved), sinus bradycardia, left internal carotid stenosis, type 2 diabetes mellitus without snf current use of insulin, acute kidney injury on Chronic kidney disease (acute kidney injury resolved) Discharge Exam Constitutional WD/WN, vitals as above Eyes PERRL, conjunctivae normal, anicteric sclerae EOM intact bilaterally ENMT external ear and nose normal, oropharynx normal Ears: + hearing impairment Neck trachea midline, no thyromegaly normal visual inspection Respiratory normal respiratory effort, lungs clear to auscultation Cardiovascular RRR, no murmur, no edema Gastrointestinal (Abdomen) normal bowel sounds, soft, nontender, no hepatosplenomegaly Musculoskeletal no cyanosis or clubbing, extremities motor strength 5/5 Head/Neck/Chest: normocephalic and head atraumatic Neurologic PERRL, EOMI, accommodation nl, no face palsy, no dysarthria CN's II-XI intact bilaterally Psychiatric A+Ox3, euthymic affect Discharge Data Allergies Allergy/AdvReac Type Severity Reaction Status Date / Time No Known Allergies Allergy Verified 02/25/19 01:07 Consultations 02/25/19 01:05 ED Decision to Admit Stat 02/25/19 04:51 Consult Case Management - Discharge Planning Routine 02/25/19 08:00 Consult Neurology Routine Ordered Studies 02/24/19 23:53 CT head/brain wo con Urgent 02/25/19 04:51 MR brain wo/w con Urgent US carotid doppler BI Routine Hospital Course (1) Dizziness: HISTORY OF PRESENT ILLNESS: as per admitting doctor "This is an 88-year-old male with past medical history significant for type 2 diabetes, hyperlipidemia, obstructive sleep apnea on CPAP, hypertension, chronic kidney disease stage III, BPH, history of rhabdomyolysis, who presents with dizziness and imbalance. The patient lives with his . He ambulates without any help. Today in the afternoon he was sitting on the porch, suddenly felt dizzy, lightheaded. It lasted for some time and after that he was able to get up and go into the house and later he was watching TV with his and when he tried to get up, he was feeling imbalance and his got worried and EMS was called in. When the EMS came, he walked okay to the ambulance and brought into the hospital. Currently resting comfortably and hemodynamically stable. Initial imaging studies are okay. Denies any headache, very hard of hearing. He denies any earaches, no runny nose, no sore throat, no cough. Sleeps okay. Appetite is okay. No recent weight gain or weight loss. No fever, chills. No chest pain, no shortness of breath, no cough, no nausea, no abdominal pain. Normal bowel and bladder movements. No hematuria or burning micturition. No melena or hematochezia. No swelling in the legs. No rash." Dizziness and imbalance. -resolved -appears transient in nature -received IV fluids during hospital stay -advised patient to reduce home dose Metoprolol from 50 mg daily to 25 mg daily to improve the bradycardia -echocardiogram TTE- 55-60% no ASD -CT head No acute intracranial abnormality -MRI brain: No acute intracranial abnormality identified, specifically no acute or subacute infarction; Age-related involutional changes with suggestion of moderate chronic microvascular ischemic disease. -passed PT/OT evaluations -neurology: no evidence of stroke, incidental left carotid stenosis sinus bradycardia -heart rate generally in the low 50s -Patient should take new prescription of metoprolol succinate as 25 mg daily rather than 50 mg daily to avoid slow heart rate (bradycardia) left internal carotid stenosis -Patient had good non fasting lipid panel but because of the left internal carotid stenosis as seen on ultrasound carotid dopplers, neurology recommends patient to take high intensity statin and atorvastatin 40 mg have been pre scribed. Patient should discuss with primary care doctor on further management of plaque control and be referred to a vascular surgery service clinic by primary medical doctor. type 2 diabetes mellitus without snf current use of insulin -Patient may continue glipizide 5 mg daily extended release and continue to follow with family medical doctor about diabetes type 2 mellitus management -HbA1c 6.3 so the diabetes mellitus is controlled acute kidney injury on Chronic kidney disease -acute kidney injury resolved with IV fluids -Patient should drink water to stay hydrated Hypertension -blood pressure stable -continue lisinopril, Maxzide. Metoprolol adjustment from home medication dosing is to be reduced History of Anxiety -no longer takes Ativan Obstructive sleep apnea, on CPAP at bedtime. Discharge Diagnosis: Dizziness and Imbalance (resolved), sinus bradycardia, left internal carotid stenosis, type 2 diabetes mellitus without snf current use of insulin, acute kidney injury on Chronic kidney disease (acute kidney injury resolved) Discharge Instructions: "Discharge to home Patient has close follow up with primary care doctor 02/27/2019 11:00 AM Provider Johnnie Pantoja MD [facility] Patient should take new prescription of metoprolol succinate as 25 mg daily rather than 50 mg daily to avoid slow heart rate (bradycardia) Patient may continue glipizide 5 mg daily extended release and continue to follow with family medical doctor about diabetes type 2 mellitus management HbA1c 6.3 so the diabetes mellitus is controlled Patient had good non fasting lipid panel but because of the left internal carotid stenosis as seen on ultrasound carotid dopplers, neurology recommends patient to take high intensity statin and atorvastatin 40 mg have been prescribed. Patient should discuss with primary care doctor on further management of plaque control and be referred to a vascular surgery service clinic by primary medical doctor. Patient should drink water to stay hydrated" Total Time Total Time Spent Total Time Spent (In Minutes): 40 minutes Total Time Includes: Examination of the Patient, Discharge Planning and Medication Reconciliation Discharge Plan Discharge Items Patient Disposition: Home - Self-Care Reason For Visit: DIZZINESS, IMBALANCE Discharge Diagnosis: Dizziness and Imbalance (resolved), sinus bradycardia, left internal carotid stenosis, type 2 diabetes mellitus without snf current use of insulin, acute kidney injury on Chronic kidney disease (acute kidney injury resolved) Condition: Good Discharge Goals: Improve function Activity: Resume your previous activity Non-emergency contact: Primary Care Provider Call non-emergency contact if: you have any medication questions Follow-up/Referrals: Johnnie Pantoja [Primary Care Provider] - Diet: Heart Healthy Addtl Provider Instructions: Discharge to home Patient has close follow up with primary care doctor 02/27/2019 11:00 AM Provider Johnnie Pantoja MD [facility] Patient should take new prescription of metoprolol succinate as 25 mg daily rather than 50 mg daily to avoid slow heart rate (bradycardia) Patient may continue glipizide 5 mg daily extended release and continue to follow with family medical doctor about diabetes type 2 mellitus management HbA1c 6.3 so the diabetes mellitus is controlled Patient had good non fasting lipid panel but because of the left internal carotid stenosis as seen on ultrasound carotid dopplers, neurology recommends patient to take high intensity statin and atorvastatin 40 mg have been prescribed. Patient should discuss with primary care doctor on further management of plaque control and be referred to a vascular surgery service clinic by primary medical doctor. Patient should drink water to stay hydrated Prescriptions: New glipizide 2.5 mg Tablet Extended Release 24hr 5 mg PO QAM 30 Days Qty: 60 RF: 0 metoprolol succinate 25 mg Tablet Extended Release 24 Hr 25 mg PO QAM 30 Days Qty: 30 RF: 0 atorvastatin 40 mg Tablet 40 mg PO QAM 30 Days Qty: 30 RF: 0 Continued lisinopril 5 mg tablet 5 mg PO DAILY RF: 0 aspirin 81 mg Tablet,Delayed Release (Dr/Ec) 81 mg PO DAILY RF: 0 calcium carbonate [Calcium 600] 600 mg calcium (1,500 mg) Tablet 600 mg PO Q OTHER DAY RF: 0 ascorbic acid (vitamin C) [Vitamin C] 500 mg Tablet 500 mg PO DAILY RF: 0 vitamin E 400 unit Capsule 400 unit PO DAILY RF: 0 cholecalciferol (vitamin D3) [Vitamin D3] 1,000 unit Tablet 1,000 unit PO DAILY RF: 0 Centrum Silver Men 300-600-300 mcg Tablet 1 tab PO Q OTHER DAY RF: 0 garlic 1,000 mg Capsule 1,000 mg PO DAILY RF: 0 ondansetron HCl 4 mg Tablet 4 mg PO Q8 PRN (Reason: Nausea) RF: 0 triamterene-hydrochlorothiazid 37.5-25 mg Capsule 1 cap PO DAILY RF: 0 Discontinued glipizide 5 mg tablet extended release 24hr 30 mg PO QAM RF: 0 metoprolol succinate 50 mg Tablet Extended Release 24 Hr 50 mg PO DAILY RF: 0 lorazepam 0.5 mg Tablet 0.5 mg PO BID PRN (Reason: Anxiety) RF: 0 hydroxyzine HCl 10 mg Tablet 10 - 20 mg PO HS RF: 0 Stand-Alone Forms: [facility] Discharge Orders: Discharge Order (Routine); Ordered 02/25/19 Ordered By: Gold Bell Admission Data Admit Date/Time: 02/25/19 03:32 Attending Provider: Gold Bell Admit Provider: Dallas Hare Primary Care Provider: Johnnie Pantoja Other Providers: Dallas Hare ; Amanda Berrios ; Eliseo Hartman ; Amanda Aragon ; Aldair Posada ; Ramon Rai Service: Telemetry Medical
[2019-02-25] MEDS ORDERED: ATORVASTATIN 40 MG TAB PO SCH (17:00)
[2019-02-25] MEDS ORDERED: hydrOXYzine HCl 10 MG TAB PO SCH (21:00)
[2019-02-26] MEDS ORDERED: glipiZIDE ER 2.5 MG TABCR PO SCH (07:30)
[2019-02-26] MEDS ORDERED: METOPROLOL SUCC 25MG EXT REL TAB PO SCH (09:00)
== END 2019-02-25 17:38 | disposition home or self-care (01) ==
LOC: ED 23:44 → 2N 23:44